=== PATIENT | female | born 1945 | race African-American/Black ===

== ENCOUNTER 2016-08-23 02:22 | Emergency (ER) | payer OTHER ==
[~2016-08-23] VITALS: Ht 165.1 cm; Wt 67.1 kg
[2016-08-23] MEDS ORDERED: IV NORMAL SALINE 1000ML BAG 1,000 ML IV ONE (03:00)
[2016-08-23 03:07] LABS: BASO # 0.1 x10^3/uL (0.0-0.2); BASO % 1 % (0-3); EOS % 1 % (0-3); HEMATOCRIT 42.1 % (36.0-47.0); LYMPH # 2.8 x10^3/uL (1.0-4.8); LYMPH % 31 % (24-48); MEAN CORPUSCULAR HEMOGLOBIN 28 pg (25-35); MEAN CORPUSCULAR HGB CONC 33 g/dL (31-37); MEAN CORPUSCULAR VOLUME 83 fL (79-100); MONO % 12 % (0-9); NEUT % 55 % (31-73); PLATELET COUNT 315 x10^3/uL (140-400); RED BLOOD COUNT 5.08 x10^6/uL (3.50-5.40); RED CELL DISTRIBUTION WIDTH 16.4 % (11.5-14.5); WHITE BLOOD COUNT 9.1 x10^3/uL (4.0-11.0)
[2016-08-23 03:23] LABS: CALCIUM 10.1 mg/dL (8.5-10.1); CREATININE 0.7 mg/dL (0.6-1.0); GFR 100.7; POTASSIUM 3.5 mmol/L (3.5-5.1)
--- NOTE | 2016-08-23 03:26 | RAD ---
RS Compliance Statement: One or more of the following individualized dose reduction techniques were utilized for this examination: 1. Automated exposure control 2. Adjustment of the mA and/or kV according to patient size 3. Use of iterative reconstruction technique CT HEAD WITHOUT CONTRAST History: syncope; head pain x tonight Comparison: None. Procedure: Axial images are obtained of the head from the skull base through the vertex without IV contrast. Findings: The ventricles and sulci are normal for the patient's age. No mass-effect, midline shift, hemorrhage, extra-axial fluid collection, or obvious acute infarction is identified. Basilar cisterns are patent. Bone windows demonstrate no acute calvarial abnormality. The left nasal passageway is opacified. The visualized paranasal sinuses are clear. Mastoid air cells are well aerated. IMPRESSION: No acute intracranial abnormality. Electronically signed by: Peng Knight MD (08/23/2016 3:23 AM) [facility]
[2016-08-23 03:34] LABS: BILIRUBIN,URINE NEGATIVE (NEG); GLUCOSE,URINE NEGATIVE (NEG); NITRITE,URINE NEGATIVE (NEG); PROTEIN,URINE NEGATIVE (NEG-TRACE); UROBILINOGEN,URINE 0.2 mg/dL (0.2 mg/dL)
[2016-08-23 03:37] LABS: ALBUMIN 4.2 g/dL (3.4-5.0); ALBUMIN/GLOBULIN RATIO 1.1 (1.0-1.7); TOTAL BILIRUBIN 0.4 mg/dL (0.2-1.0); TOTAL PROTEIN 7.9 g/dL (6.4-8.2)
[2016-08-23 03:48] LABS: BACTERIA,URINE 0 /HPF (0-FEW); RBC,URINE OCC /HPF (0-2); SQUAMOUS EPITHELIAL CELL,UR FEW /LPF; YEAST,URINE PRESENT /HPF
[2016-08-23 03:56] VITALS: BP 168/74
[2016-08-23] MEDS ORDERED: FLUT9.9S NS (04:14)
--- NOTE | 2016-08-23 04:14 | PHYS DOC ---
Past Medical History Past Medical History: Hypertension Past Surgical History: Other Additional Past Surgical Histo: ABD SURGERY Alcohol Use: Occasionally Drug Use: None Adult General Chief Complaint Chief Complaint: SYNCOPE HPI HPI Patient is a 70 year old female who presents with syncope. The patient states she got up in the middle of the night to use the bathroom because she was having diarrhea. She felt lightheaded & fell to the ground. reports she was briefly unconscious. No seizure activity, tongue biting, incontinence. Denies precipitating chest pain, palpitations, shortness of breath. She reports that she did hit her head when she fell. Denies headache, neck pain, other injuries. She states she had several episodes of diarrhea yesterday, no vomiting, abdominal pain, hematochezia/melena. She states yesterday she had sinus congestion, seen at urgent care & took initial dose of z pack earlier in the day. She reports onset of diarrhea after starting azithromycin. History of hypertension. Her PCP was at [facility] but is no longer practicing. Review of Systems Review of Systems Constitutional: Denies fever or chills. reports syncope. Eyes: Denies change in visual acuity HENT: Denies nasal congestion or sore throat Respiratory: Denies cough or shortness of breath Cardiovascular: Denies chest pain or edema GI: Denies abdominal pain, nausea, vomiting, bloody stools, reports diarrhea : Denies dysuria or hematuria Musculoskeletal: Denies back pain or joint pain Integument: Denies rash or skin lesions Neurologic: Denies headache, focal weakness or sensory changes Current Medications Current Medications Current Medications Medications (Trade) Dose Ordered Sig/Leandro Start Time Stop Time Status Last Admin Dose Admin Sodium Chloride 1,000 ml @ 1,000 mls/hr 1X ONCE 08/23/16 03:00 08/23/16 03:59 DC 08/23/16 03:00 1,000 MLS/HR Allergies Allergies Allergies Coded Allergies Type Severity Reaction Last Updated Verified tetracycline Allergy Unknown 08/23/16 Yes Physical Exam Physical Exam Constitutional: Well developed, well nourished, no acute distress, non-toxic appearance. HENT: Normocephalic, atraumatic, bilateral external ears normal, oropharynx moist, nose normal. Eyes: PERRLA, EOMI, conjunctiva normal, no discharge. Neck: supple, no stridor. no midline c-spine tenderness Cardiovascular: RRR, no murmurs, no edema. Lungs & Thorax: LCTAB, no wheezing, no respiratory distress. Abdomen: soft, nontender, nondistended. Skin: Warm, dry, no erythema, no rash. Back: No spinal tenderness. Extremities: No tenderness, no edema. Neurologic: Alert and oriented X 3, CN2-12 grossly intact, symmetric strength/ sensation to UE & LE, no focal deficits noted. Psychologic: Affect normal, judgement normal, mood normal. Current Patient Data Vital Signs Vital Signs Date Time Temp Pulse Resp B/P (MAP) Pulse Ox O2 Delivery O2 Flow Rate FiO2 08/23/16 03:56 77 168/74 (105) Room Air 08/23/16 03:00 95 08/23/16 02:33 98.1 18 98.1 Lab Values Laboratory Tests Test 08/23/16 02:30 08/23/16 03:24 White Blood Count 9.1 x10^3/uL (4.0-11.0) Red Blood Count 5.08 x10^6/uL (3.50-5.40) Hemoglobin 14.0 g/dL (12.0-15.5) Hematocrit 42.1 % (36.0-47.0) Mean Corpuscular Volume 83 fL (79-100) Mean Corpuscular Hemoglobin 28 pg (25-35) Mean Corpuscular Hemoglobin Concent 33 g/dL (31-37) Red Cell Distribution Width 16.4 % (11.5-14.5) H Platelet Count 315 x10^3/uL (140-400) Neutrophils (%) (Auto) 55 % (31-73) Lymphocytes (%) (Auto) 31 % (24-48) Monocytes (%) (Auto) 12 % (0-9) H Eosinophils (%) (Auto) 1 % (0-3) Basophils (%) (Auto) 1 % (0-3) Neutrophils # (Auto) 5.1 x10^3uL (1.8-7.7) Lymphocytes # (Auto) 2.8 x10^3/uL (1.0-4.8) Monocytes # (Auto) 1.1 x10^3/uL (0.0-1.1) Eosinophils # (Auto) 0.1 x10^3/uL (0.0-0.7) Basophils # (Auto) 0.1 x10^3/uL (0.0-0.2) Sodium Level 140 mmol/L (136-145) Potassium Level 3.5 mmol/L (3.5-5.1) Chloride Level 100 mmol/L (98-107) Carbon Dioxide Level 31 mmol/L (21-32) Anion Gap 9 (6-14) Blood Urea Nitrogen 9 mg/dL (7-20) Creatinine 0.7 mg/dL (0.6-1.0) Estimated GFR (Cockcroft-Gault) 100.7 BUN/Creatinine Ratio 13 (6-20) Glucose Level 130 mg/dL (70-99) H Calcium Level 10.1 mg/dL (8.5-10.1) Total Bilirubin 0.4 mg/dL (0.2-1.0) Aspartate Amino Transferase (AST) 19 U/L (15-37) Alanine Aminotransferase (ALT) 16 U/L (14-59) Alkaline Phosphatase 112 U/L (46-116) Troponin I Quantitative < 0.017 ng/mL (0.000-0.055) LU-Wie-X-Type Natriuretic Peptide 25 pg/mL (0-124) Total Protein 7.9 g/dL (6.4-8.2) Albumin 4.2 g/dL (3.4-5.0) Albumin/Globulin Ratio 1.1 (1.0-1.7) Urine Collection Type Unknown Urine Color Yellow Urine Clarity Clear Urine pH 7.0 Urine Specific [place] 1.015 Urine Protein Negative mg/dL (NEG-TRACE) Urine Glucose (UA) Negative mg/dL (NEG) Urine Ketones (Stick) Negative mg/dL (NEG) Urine Blood Negative (NEG) Urine Nitrite Negative (NEG) Urine Bilirubin Negative (NEG) Urine Urobilinogen Dipstick 0.2 mg/dL (0.2 mg/dL) Urine Leukocyte Esterase Negative (NEG) Urine RBC Occ /HPF (0-2) Urine WBC 1-4 /HPF (0-4) Urine Squamous Epithelial Cells Few /LPF Urine Bacteria 0 /HPF (0-FEW) Urine Hyaline Casts Few /HPF Urine Mucus Slight /LPF Urine Yeast Present /HPF Laboratory Tests 08/23/16 02:30 Laboratory Tests 08/23/16 02:30 EKG EKG interpreted by me: NSR rate 76, no ST elevation, T waves inverted without ST depression in leads 2, 3, aVF, V3-V6, normal intervals, no ectopy. no previous EKG for comparison.[] Radiology/Procedures Radiology/Procedures PROCEDURE: CT HEAD WO CONTRAST PQRS Compliance Statement: One or more of the following individualized dose reduction techniques were utilized for this examination: 1. Automated exposure control 2. Adjustment of the mA and/or kV according to patient size 3. Use of iterative reconstruction technique CT HEAD WITHOUT CONTRAST History: syncope; head pain x tonight Comparison: None. Procedure: Axial images are obtained of the head from the skull base through the vertex without IV contrast. Findings: The ventricles and sulci are normal for the patient's age. No mass-effect, midline shift, hemorrhage, extra-axial fluid collection, or obvious acute infarction is identified. Basilar cisterns are patent. Bone windows demonstrate no acute calvarial abnormality. The left nasal passageway is opacified. The visualized paranasal sinuses are clear. Mastoid air cells are well aerated. IMPRESSION: No acute intracranial abnormality. Electronically signed by: Peng Knight MD (08/23/2016 3:23 AM) [facility] DICTATED and SIGNED BY: PENG KNIGHT MD DATE: 08/23/16 0321 [] Course & Med Decision Making Course & Med Decision Making Pertinent Labs and Imaging studies reviewed. (See chart for details) The patient presents with syncope. She is well appearing here with stable vitals. EKG showed diffuse T wave inversions with no previous for comparison. Gave IV fluids. Labs show no acute abnormality. She felt better & was able to ambulate with steady gait. CT unremarkable for acute abnormality. Discussed results with patient, in light of ischemic changes on EKG without previous in the context of syncope, I recommended admission to the hospital. She denies any chest pain, feels better, symptoms associated with diarrhea likely dehydration. She declines admission. I recommended hydration, regular meals, stand slowly from sitting. She doesn't want to continue taking z pack; I told her that I rarely prescribe antibiotics for sinusitis & would not recommend replacement antibiotic prescription. Will give prescription for flonase & suggested neti pot. Follow up with PCP ideally within 2 days, if unable to make an appointment could follow up with Dr. Roque or Dr. Marshall. Come back for recurrent syncope, severe chest pain or shortness of breath, any otherwise worsening condition. Discharged home in stable condition. [] Dragon Disclaimer Dragon Disclaimer This electronic medical record was generated, in whole or in part, using a voice recognition dictation system. Departure Departure Impression: Primary Impression: Syncope Disposition: 01 HOME, SELF-CARE Condition: STABLE Referrals: NO PCP (PCP) ESTEPHANIE MARSHALL MD,TREVON Garcia MD Patient Instructions: Syncope, [id number] Additional Instructions: You were seen in the emergency department today for fainting. The lab tests did not show significant abnormality, & CT of your head was normal. Your EKG showed some changes that could indicate heart disease (blocked arteries). We discussed possible admission to the hospital but you preferred to go home. it is very important to follow up with primary care or a solution consultant within 2 days. If you can't see your doctor, you can make an appointment with Dr. Roque for primary care or Dr. Marshall for cardiology. Use flonase to treat sinus symptoms & consider getting neti pot for nasal rinses. Take tylenol or ibuprofen for pain or fever. Come back for recurrent fainting, severe chest pain or shortness of breath, palpitations, any otherwise worsening condition. Scripts Fluticasone Propionate (Flonase Allergy Relief) 9.9 Ml [place].susp 2 SPRAYS NS DAILY, #1 BOTTLE Prov: REGIS BARNETT MD 08/23/16 REGIS BARNETT MD Aug 23, 2016 04:14
--- NOTE | 2016-08-24 14:41 | EKG ---
[facility] [address] [place] [address] Test Date: 2016-08-23 Test Time: 02:34:24 Pat Name: FABIENNE ALMEIDA Department: Room: Gender: F Tap Dancer: : 1945 Requested By: REGIS BARNETT Order Number: [id number] Reading MD: Measurements Intervals [place] Rate: 76 P: 49 CT: 188 QRS: -29 QRSD: 86 T: -31 QT: 374 QTc: 425 Interpretive Statements SINUS RHYTHM LEFT ATRIAL ABNORMALITY LEFTWARD AXIS QRS(T) CONTOUR ABNORMALITY CONSIDER ANTEROSEPTAL MYOCARDIAL DAMAGE T ABNORMALITY IN ANTERIOR LEADS INFEROLATERAL LEADS RI6.01 Unconfirmed report No previous ECG available for comparison
== END 2016-08-23 04:22 | disposition home or self-care (01) ==
LOC: ER 02:22
DX: R55 Syncope and collapse (principal); R19.7 Diarrhea, unspecified; I10 Essential (primary) hypertension; Z88.1 Allergy status to other antibiotic agents
CPT/HCPCS: 36415; 70450; 80053; 81001; 83880; 84484; 85027; 93005; 96360; 99285; J7030

== ENCOUNTER 2017-06-04 02:57 | Emergency (ER) | payer OTHER ==
[2017-06-04] MEDS: IV NORMAL SALINE 1000ML BAG 1,000 ML IV (04:11)
[2017-06-04] MEDS: ONDANSETRON PF 4 MG/2 ML VIAL. IV (04:11)
[2017-06-04 04:22] LABS: ANION GAP 10 (6-14); BLOOD UREA NITROGEN 13 mg/dL (7-20); CALCIUM 9.3 mg/dL (8.5-10.1); CARBON DIOXIDE 29 mmol/L (21-32); CHLORIDE 102 mmol/L (98-107); CREATININE 0.8 mg/dL (0.6-1.0); GFR 86.1; GLUCOSE 123 mg/dL (70-99); POTASSIUM 3.3 mmol/L (3.5-5.1); SODIUM 141 mmol/L (136-145)
== END 2017-06-04 05:47 | disposition home or self-care (01) ==
LOC: ER 02:57
DX: K52.9 Noninfective gastroenteritis and colitis, unspecified (principal); I10 Essential (primary) hypertension; Z98.890 Other specified postprocedural states; Z88.1 Allergy status to other antibiotic agents
CPT/HCPCS: 36415; 80048; 96361; 96374; 99284-25; J2405; J7030

== ENCOUNTER 2019-10-01 07:01 | Emergency (ER) | payer MEDICARE, OTHER ==
[~2019-10-01] VITALS: Ht 165.1 cm; Wt 65.0 kg
[~2019-10-01 07:01] MED LIST: FLUT9.9S NS; ONDA4TAB10 SL
[2019-10-01 07:09] VITALS: BP 139/73
[2019-10-01] MEDS ORDERED: diphenhydrAMINE HCL 25 MG CAPSULE PO ONE (07:30)
[2019-10-01] MEDS ORDERED: DEXAMETHASONE 4 MG TABLET PO ONE (07:30)
[2019-10-01] MEDS ORDERED: DIPH25CA58 PO (07:36)
[2019-10-01] MEDS ORDERED: PRED20TA PO (07:36)
[2019-10-01] MEDS ORDERED: FAMO-63 PO (07:36)
--- NOTE | 2019-10-01 07:36 | PHYS DOC ---
Past Medical History Past Medical History: Cancer, Hypertension, Other Additional Past Medical Histor: L. BREAST CA Past Surgical History: Other Additional Past Surgical Histo: ABD SURGERY, LEFT BREAST LUMPECTOMY Smoking Status: Former Smoker Alcohol Use: Occasionally Drug Use: None General Adult EDM: Chief Complaint: SKIN RASH/ABSCESS HPI: HPI: 73-year-old female presents to the emergency department for a skin rash on the superior aspect of her orbits bilaterally and on her upper lip. The rash began 2 days ago after receiving a wax on these 2 areas. It was a hot wax, but the patient states that it was not hot enough to cause a burn or feel like her skin was burning during the wax. She has gone to this location multiple times in the past and has never had this reaction. Patient is currently being treated for breast cancer and she completed her chemotherapy course of drugs in July.patient had radiation treatments done 2 weeks ago, but is not currently taking any immunosuppressive drugs. She states that it is not very painful, but it is frustrating and bothersome. Patient also states that it is itchy, but not severe in nature. She says that the rash on her upper lips is being agitated by wearing a mask. She has taken Benadryl for the pain, rash, and edema but it has been minimally beneficial. She went to urgent care yesterday, and was given antibiotic ointment for the rash and she has been using this since then. She states that the rashes burning in nature. Review of Systems: Review of Systems: Constitutional: Denies fever or chills Eyes: Denies redness or eye pain HENT: Denies nasal congestion or sore throat Respiratory: Denies cough or shortness of breath Cardiovascular: Denies chest pain or palpitations GI: Denies abdominal pain, nausea, or vomiting : Denies dysuria or hematuria Musculoskeletal: Denies back pain or joint pain Integument: Reports rash in superior orbits bilaterally and upper lip Neurologic: Denies headache, focal weakness or sensory changes Complete systems were reviewed and found to be within normal limits, except as documented in this note. Allergies: Allergies: Allergies Coded Allergies Type Severity Reaction Last Updated Verified tetracycline Allergy Intermediate 06/04/17 Yes Physical Exam: PE: Constitutional: Well developed, well nourished, no acute distress, non-toxic appearance HENT: Normocephalic, atraumatic Eyes: PERRL, EOMI, conjunctiva normal, no discharge Neck: Normal range of motion, no tenderness, supple Lungs & Thorax: Bilateral equal rise and fall. No acute respiratory distress Abdomen: Soft, no tenderness Skin: Rash noted on the superior orbits bilaterally and upper lip. More severely agitated on upper lip. Extremities: No tenderness, ROM intact, no edema Neurologic: Alert and oriented X 3, normal motor function, normal sensory function, no focal deficits noted Psychologic: Affect normal, judgment normal Current Patient Data: Vital Signs: Vital Signs Date Time Temp Pulse Resp B/P (MAP) Pulse Ox O2 Delivery O2 Flow Rate FiO2 10/01/19 07:09 98.1 81 16 139/73 (95) 99 Room Air 98.1 EKG: EKG: [] Radiology/Procedures: Radiology/Procedures: [] Course & Med Decision Making: Course & Med Decision Making 73-year-old female presents to the emergency department for a rash on her upper lips and superior aspect of her orbits after having a hot wax done 2 days ago. She has gone to this location before for the same treatment without any prob lems. She recently finished chemotherapy for breast cancer in July and has had 1 radiation treatment done 2 weeks ago. Patient is not currently on any immunosuppressive medications. Patient was examined and found to have an irritated rash on the upper lips and superior aspect of the orbits, most severe on the upper lips most probably caused by irritation from the mask that she is wearing. Rash seems to be allergic in nature, and less likely that was a burn from the hot wax. Patient is currently on an antibiotic ointment to help prevent infection of the areas that have the rash. We have given the patient a 5-day course of prednisone to reduce inflammation and irritation of the rash. Patient is instructed to follow-up with her primary care provider in the next 3 days, or return to the emergency department if she starts to develop concerning symptoms such as fever or shortness of breath. Patient stable for discharge with outpatient follow-up with PCP. Discussed findings and plan with patient, who acknowledges understanding and agreement. Tee Disclaimer: Tee Disclaimer: This electronic medical record was generated, in whole or in part, using a voice recognition dictation system. Departure Departure Impression: Primary Impression: Rash Disposition: 01 HOME, SELF-CARE Condition: STABLE Referrals: RUSTAM CRUZ MD (PCP) Patient Instructions: Chemical Burn, [id number], Rash, [id number] Additional Instructions: Continue use of prescribed antibiotic ointment as directed to upper lip. Scripts Diphenhydramine Hcl (BENADRYL) 25 Mg Capsule 1 CAP PO Q4-6HRS PRN for RASH, #30 CAP 0 Refills Prov: HERSON RODRIGUEZ DO 10/01/19 Famotidine (PEPCID) 20 Mg Tablet 20 MG PO BID, #10 TAB Prov: HERSON RODRIGUEZ DO 10/01/19 Prednisone (PREDNISONE) 20 Mg Tablet 2 TAB PO DAILY, #8 TAB Start this prescription tomorrow, 10/02/19 Prov: HERSON RODRIGUEZ DO 10/01/19 Justicifation of Admission Dx: Justifications for Admission: Justification of Admission Dx: N/A HERSON RODRIGUEZ DO Oct 01, 2019 07:36
== END 2019-10-01 07:45 | disposition home or self-care (01) ==
LOC: ER 07:01
DX: R21 Rash and other nonspecific skin eruption (principal); R45.1 Restlessness and agitation; R60.9 Edema, unspecified; I10 Essential (primary) hypertension; Z87.891 Personal history of nicotine dependence; Z88.1 Allergy status to other antibiotic agents
CPT/HCPCS: 99283; Q0163